=== PATIENT | male | born 1945 | race African-American/Black ===

== ENCOUNTER 2020-03-18 10:13 | Outpatient (CLI) | payer OTHER | END 2020-03-18 12:53 | disposition home or self-care (01) | LOC: MRI 10:13 | PROVIDERS: ATTEND Psychiatry & Neurology Clinical Neurophysiology | DX: M54.16 Radiculopathy, lumbar region (principal) | CPT/HCPCS: 72148 ==

== ENCOUNTER 2023-04-24 12:04 | Outpatient (CLI) | payer OTHER | END 2023-04-24 12:08 | disposition home or self-care (01) | LOC: EKG 12:04 | DX: I11.9 Hypertensive heart disease without heart failure (principal) ==